=== PATIENT | male | born 1990 | race Caucasian/White ===

== ENCOUNTER 2017-03-08 19:40 | Emergency (ER) | payer OTHER ==
[2017-03-08 19:40] VITALS: BP 138/80; PULSE 101; RESP 20; O2SAT 97
[~2017-03-08 19:40] MED LIST: BUPR100T8 PO; BUSP10TA2 PO; DOXE50CA3 PO
[2017-03-08 21:01] LABS: BASOPHILS % (AUTO) 0.5 % (0-3); EOSINOPHILS % (AUTO) 2.2 % (0-5); MONOCYTES % (AUTO) 8.9 % (4-12); Mean Corpuscular Hemoglobin 29.8 pg (27.0-35.0); Mean Corpuscular Volume 87.2 fL (81-100); NEUTROPHILS % (AUTO) 61.1 % (40-74); Platelet Count 185 bil/L (150-400)
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
[2017-03-09] MEDS ORDERED: BusPIRone 15 mg Dividose Tablet PO ONE (05:50)
[2017-03-09] MEDS ORDERED: BUSP10TA2 PO (06:08)
[2017-03-09] MEDS ORDERED: BUPR100T15 PO (06:08)
[2017-03-09 07:36] VITALS: BP 106/63; PULSE 82; O2SAT 98
[2017-03-09] MEDS ORDERED: BusPIRone 15 mg Dividose Tablet PO SCH (08:30)
[2017-03-09 09:22] VITALS: BP 111/78; PULSE 75; O2SAT 97
== END 2017-03-09 09:24 | disposition home or self-care (01) ==
LOC: SED 19:40
DX: R45.851 Suicidal ideations (principal); F32.9 Major depressive disorder, single episode, unspecified; F43.0 Acute stress reaction; F90.9 Attention-deficit hyperactivity disorder, unspecified type; Z87.891 Personal history of nicotine dependence